=== PATIENT | female | born 1980 | race Hispanic/Latino ===

== ENCOUNTER 2025-05-25 14:09 | Emergency (ER) | payer BC ==
[~2025-05-25] VITALS: Ht 154.9 cm; Wt 77.6 kg
[2025-05-25 16:05] LABS: BASOPHILS % 0.6 % (0.0-1.0); EOSINOPHILS % 2.8 % (0.0-6.0); LYMPHOCYTES % 36.2 % (18.0-39.1); MONOCYTES % 5.7 % (4.4-11.3); NEUTROPHILS % 54.2 % (38.7-80.0); RED CELL DISTRIBUTION WIDTH 12.1 % (11.7-14.4)
[2025-05-25 16:16] LABS: INR 0.84
[2025-05-25 16:29] LABS: EST GLOMERULAR FILTRATION RATE 111.0 ML/MIN (>=60)
[2025-05-25] MEDS: ONDANSETRON HCL INJ 2MG/ML 2ML 2 MG/ML VIAL IV STA (16:45)
[2025-05-25] MEDS: Morphine 4mg INJECTION 4 MG/ML INJ IV STA (16:45)
[2025-05-25] MEDS: KETOROLAC TROMETHAMINE 30 MG/ML VIAL IV STA (16:45)
[2025-05-25] MEDS: SODIUM CHLORIDE 0.9% 1000ML 1,000 ML IV STA (16:46)
[2025-05-25 18:05] LABS: LEUKOCYTE ESTERASE ,URINE NEGATIVE (NEGATIVE); PROTEIN,URINE DIPSTICK NEGATIVE (NEGATIVE)
[2025-05-25 18:06] LABS: URINE UROBILINOGEN 0.2 mg/dL (0.2 - 1)
[2025-05-25 18:11] LABS: EPITHELIAL CELLS,URINE MANY /LPF; YEAST,URINE MANY
[2025-05-25] MEDS ORDERED: FLUCONAZOLE150 MG PO (18:27)
[2025-05-25] MEDS ORDERED: PYRIDIUM100 MG PO (18:27)
[2025-05-25] MEDS ORDERED: CEFDINIR300 MG PO (18:27)
[2025-05-25 18:47] VITALS: PULSE 65; RESP 16; TEMP 98.3; O2SAT 100
== END 2025-05-25 18:49 | disposition home or self-care (01) ==
LOC: ER 15:11
DX: R30.0 Dysuria (principal); N39.0 Urinary tract infection, site not specified; M54.50 Low back pain, unspecified; E11.65 Type 2 diabetes mellitus with hyperglycemia; J45.909 Unspecified asthma, uncomplicated
CPT/HCPCS: 36415; 71045; 74176; 80053; 81001; 83735; 85025; 85610; 85730; 99284; J1885; J2270; J2405; J7030